=== PATIENT | male | born 1965 | race Caucasian/White ===

== ENCOUNTER 2023-07-13 12:06 | Emergency (ER) | payer SELFPAY ==
[2023-07-13] MEDS: Aspirin 81 MG Tab.Chew PO ONE (12:07)
[2023-07-13] MEDS ORDERED: Sodium Chloride 0.9% 10 ML Syringe FLUSH PRN (12:08)
[2023-07-13] MEDS ORDERED: Sodium Chloride 0.9% 1,000 ML IV SCH (12:15)
[2023-07-13 12:33] LABS: HEMATOCRIT 44.5 % (40.0-54.0); HEMOGLOBIN 14.7 g/dL (13.0-18.0); MEAN CORPUSCULAR HEMOGLOBIN 32.2 pg (27.0-32.0); MEAN PLATELET VOLUME 10.3 fL (6.0-10.0); RED BLOOD CELL COUNT 4.56 M/uL (4.50-6.50); RED CELL DISTRIBUTION WIDTH 13.4 % (11.0-16.0); WHITE BLOOD CELL COUNT,WBC 6.8 K/uL (4.0-11.0)
[2023-07-13 12:54] LABS: ALANINE AMINOTRANSFERASE,ALT 35 U/L (12-78); ALBUMIN 3.6 g/dL (3.4-5.0); ALKALINE PHOSPHATASE 68 U/L (46-116); ASPARTATE AMNIOTRANSFERASE,AST 32 U/L (15-37); BILIRUBIN TOTAL 0.3 mg/dL (0.0-1.0); BLOOD UREA NITROGEN,BUN 19 mg/dL (8-26); BUN/CREATININE RATIO 16.5 (6-25); CALCIUM 8.6 mg/dL (8.5-10.1); CHLORIDE,CL 103 mmol/L (98-107); CREATININE 1.15 mg/dL (0.70-1.30); ESTIMATED GFR 74 mL/min (>60); GLUCOSE RANDOM 133 mg/dL (74-100); MAGNESIUM 1.9 mg/dL (1.8-2.4); PHOSPHORUS 3.3 mg/dL (2.5-4.9); PROTEIN TOTAL,TP 7.3 g/dL (6.4-8.2); SODIUM,NA 136 mmol/L (136-145)
[2023-07-13 12:58] LABS: TROPONIN I HIGH SENSITIVITY < 4.0 pg/ml (<=60.4)
[2023-07-13] MEDS: Lactated Ringers 1,000 ML IV SCH (13:25)
[2023-07-13 19:36] VITALS: BP 135/73; PULSE 86
[2023-07-16 04:12] LABS: T3 UPTAKE 25 % (24-39)
== END 2023-07-13 13:43 ==
LOC: LB.ED 12:06
DX: R00.1 Bradycardia, unspecified (principal); R55 Syncope and collapse
CPT/HCPCS: 36415; 70450; 71045; 80053; 83735; 84100; 84443; 84479; 84484; 85027; 85379; 93005; 96360; 99285-25; A0425; A0429; A9270-GY; J7120